=== PATIENT | female | born 1930 | race Caucasian/White ===

== ENCOUNTER 2019-04-30 14:36 | Inpatient (IN) | payer OTHER ==
[~2019-04-30] VITALS: Ht 152.4 cm; Wt 63.2 kg
[~2019-04-30 14:36] MED LIST: LEVO100T8 PO; LISI10TA6 PO
[2019-04-30 15:39] LABS: Alanine Aminotransferase 112 U/L (13-56); Albumin 3.8 g/dL (3.4-5.0); Anion Gap 10 (5-15); Blood Urea Nitrogen 21 mg/dL (7-18); Calcium 8.4 mg/dL (8.5-10.1); Carbon Dioxide 21 mmol/L (21-32); Chloride 106 mmol/L (98-107); Glucose 121 mg/dL (74-106); Sodium 137 mmol/L (136-145)
[2019-04-30 15:40] LABS: Basophils # (auto) 0.1 uL; Basophils % (auto) 0.8 % (0.0-2.0); Eosinophils # (auto) 0.1 uL; Hematocrit 41.5 % (36.0-46.0); Hemoglobin 13.7 g/dL (12.2-16.2); Lymphocytes # (auto) 1.4 uL; Lymphocytes % (auto) 20.6 % (10.0-50.0); Mean Corpuscular Hemoglobin 28.6 pg (28.0-32.0); Mean Corpuscular Hgb Conc. 33.1 g/dL (32.0-36.0); Mean Corpuscular Volume 86.3 fL (80.0-100.0); Monocytes # (auto) 0.4 uL; Monocytes % (auto) 6.3 % (0.0-12.0); Neutrophils # (auto) 4.8 uL; Neutrophils % (auto) 70.3 % (37.0-80.0); Nucleated Red Blood Cells % 0.2 %; Platelet Count (auto) 185 10^3/uL (140-450); Red Blood Cells 4.81 10^6/uL (4.0-5.20); Red Cell Distribution Width 14.1 % (11.8-14.3); White Blood Cell 6.9 10^3/uL (4.4-10.8)
[2019-04-30 15:44] LABS: Alkaline Phosphatase 107 U/L (45-117); Aspartate Aminotransferase 152 U/L (15-37); BUN/Creatinine Ratio 21.2; Bilirubin, Total 0.9 mg/dL (0.2-1.0); GFR African American 68 mL/min; GFR Non-African American 56 mL/min; Total Protein 7.3 g/dL (6.4-8.2)
[2019-04-30] MEDS ORDERED: cefTRIAXone 1GM/50ML D5W 50 ML IV ONE (16:45)
[2019-04-30 17:48] LABS: Urine Bacteria FEW /hpf (None Seen); Urine Blood Negative /uL (Negative); Urine Specific Gravity 1.007 (1.001-1.035); Urine WBC 2 /hpf (0 - 5)
[2019-04-30 18:05] LABS: INR 1.01 (0.9-1.15); Partial Thromboplastin Time 26.9 sec (23.64-32.05)
[2019-04-30] MEDS ORDERED: NITROGLYCERIN 0.4 MG SL TAB SL PRN (20:45)
[2019-04-30] MEDS ORDERED: AZITHROMYCIN 500MG/ 250ML 250 ML IV ONE (20:45)
[2019-04-30] MEDS ORDERED: FUROSEMIDE 20 MG/2 ML VIAL IV ONE (20:45)
[2019-04-30] MEDS ORDERED: MORPHINE SULF INJ 2 MG/ML SYRINGE 1ML IV PRN (20:45)
[2019-04-30] MEDS ORDERED: ONDANSETRON HCL 4 MG/2 ML VIAL IV PRN (20:45)
[2019-04-30] MEDS ORDERED: ACETAMINOPHEN 325 MG TAB PO PRN (20:45)
[2019-04-30] MEDS ORDERED: FAMOTIDINE 20 MG TAB PO SCH (22:00)
[2019-04-30 23:00] VITALS: BP 149/89
[2019-04-30] MEDS: TEMAZEPAM 15 MG CAP PO PRN (23:26)
--- NOTE | 2019-05-01 | NUR ---
Telemetry admit from [facility] admitted to Telemetry unit after SBAR received. Patient oriented to STEPHAN PRASAD RN primary RN, unit, room, bed, and unit policies regarding patient care and visiting hours. Patient now on continuous telemetry monitoring, tele box #[id number] and telemetry reading on arrival to unit is NSR. Patient placed on bedside oxygen 2L/NC, weighed by bed scale and encouraged to call if they need something. All questions and concerns addressed, patient verbalized understanding. Note:
[2019-05-01] MEDS ORDERED: ZOLP5TAB5 PO (00:33)
[2019-05-01] MEDS ORDERED: HYDR50TA69 PO (00:33)
[2019-05-01 05:00] VITALS: BP 153/74
[2019-05-01] MEDS: LEVOTHYROXINE SODIUM 100 MCG TAB PO SCH (06:20)
[2019-05-01 07:25] LABS: Basophils # (auto) 0.1 uL; Basophils % (auto) 0.9 % (0.0-2.0); Eosinophils # (auto) 0.2 uL; Eosinophils % (auto) 2.6 % (0.0-7.0); Hematocrit 42.2 % (36.0-46.0); Hemoglobin 13.9 g/dL (12.2-16.2); Lymphocytes # (auto) 1.8 uL; Lymphocytes % (auto) 29.5 % (10.0-50.0); Mean Corpuscular Hemoglobin 28.4 pg (28.0-32.0); Monocytes # (auto) 0.4 uL; Monocytes % (auto) 7.2 % (0.0-12.0); Neutrophils # (auto) 3.7 uL; Neutrophils % (auto) 59.8 % (37.0-80.0); Nucleated Red Blood Cells % 0.1 %; Platelet Count (auto) 190 10^3/uL (140-450); Red Cell Distribution Width 14.2 % (11.8-14.3); White Blood Cell 6.1 10^3/uL (4.4-10.8)
--- NOTE | 2019-05-01 07:30 | NUR ---
OPENING NOTE The patient is received alert and oriented times four with no SOB or s/s of distress at this time. The patient is resting in bed in the lowest position with all light within reach, will continue to monitor and POC.
[2019-05-01 07:43] LABS: BUN/Creatinine Ratio 22.1; Calcium 8.4 mg/dL (8.5-10.1)
[2019-05-01 08:00] VITALS: BP 141/80
[2019-05-01] MEDS ORDERED: cefTRIAXone 1GM/50ML D5W 50 ML IV SCH (09:00)
--- NOTE | 2019-05-01 09:30 | NUR ---
ROCEPHIN STOPPED The patient's IV Rocephin 1 gm is stopped. The patient states that her IV site is burning and the patient has redness to the IV site. The patient's IV is D/C'd with catheter intact. The patient has a new IV started to the left upper arm, 20 gauge after one attempt. Will continue to monitor and POC.
[2019-05-01] MEDS ORDERED: LISINOPRIL 10 MG TAB PO SCH (10:00)
[2019-05-01] MEDS ORDERED: FUROSEMIDE 40 MG TAB PO SCH (10:00)
[2019-05-01] MEDS ORDERED: AZITHROMYCIN 500MG/ 250ML 250 ML IV SCH (10:00)
[2019-05-01 12:00] VITALS: BP 143/76
[2019-05-01] MEDS: ENOXAPARIN SOD 40 MG/0.4 ML SYRINGE SC SCH (12:16)
--- NOTE | 2019-05-01 13:15 | NUR ---
PHYSICIAN BEDSIDE Dr. Spivey is bedside and updates the patient on the POC.
[2019-05-01 17:00] VITALS: BP 131/74
--- NOTE | 2019-05-01 17:57 | NUR ---
Discharge planning per consult, patient has orders to dc with [facility]. Referral faxed to [facility]-Racquel Donnelly, and she advised that she will forward the referral to the appropriate department for processing but that it will typically go to [facility]. Placed a follow up call, Racquel Donnelly was gone, but per Nida (she answered the ext for Racquel Donnelly), the notes indicate that [facility] will see the patient on Saturday. Addendum: 05/01/19 at 1802 by TIKA ABDULLAHI Amended: Links added.
[2019-05-01] MEDS: FUROSEMIDE 20 MG/2 ML VIAL IV SCH (18:21)
--- NOTE | 2019-05-01 20:04 | NUR ---
Opening Shift Note Assumed care of patient, awake and alert. No S/S of distress/SOB or pain, on 2L O2 via NC. Instructed on POC and to call for assist PRN, will continue to monitor for changes Q1hr and PRN.
[2019-05-01] MEDS: TEMAZEPAM 15 MG CAP PO PRN (21:00)
[2019-05-01] MEDS: POTASSIUM EFFERVESENT TAB 25 MEQ PO SCH (21:00)
[2019-05-01 21:56] VITALS: BP 125/46
[2019-05-01] MEDS ORDERED: FAMOTIDINE 20 MG TAB PO SCH (22:00)
[2019-05-02 04:50] VITALS: BP 115/61
[2019-05-02] MEDS: LEVOTHYROXINE SODIUM 100 MCG TAB PO SCH (06:21)
[2019-05-02] MEDS: FUROSEMIDE 20 MG/2 ML VIAL IV SCH (06:22)
[2019-05-02 07:52] LABS: BUN/Creatinine Ratio 23.3; Calcium 8.3 mg/dL (8.5-10.1); Potassium 3.9 mmol/L (3.5-5.1)
--- NOTE | 2019-05-02 08:00 | NUR ---
Opening Shift Note Assumed care of patient, awake and alert. No S/S of distress/SOB or pain. Instructed on POC and to call for assist PRN, will continue to monitor for changes Q1hr and PRN.
[2019-05-02 09:00] VITALS: BP 145/80
[2019-05-02] MEDS: POTASSIUM EFFERVESENT TAB 25 MEQ PO SCH (09:29)
[2019-05-02] MEDS: ENOXAPARIN SOD 40 MG/0.4 ML SYRINGE SC SCH (09:30)
[2019-05-02] MEDS ORDERED: FURO1TAB31 PO (10:46)
--- NOTE | 2019-05-02 12:17 | NUR ---
DISCHARGE WENT OVER ALL DISCHARGE PAPERWORK WITH PATIENT. ANSWERED QUESTIONS. REMOVED ID BAND. REMOVED TELEMETRY AND SENT TO ICU; CALLED ICU TO LET THEM KNOW. REMOVED IV. GAVE PRESCRIPTION TO PATIENT. PATIENT DROVE HERSELF TO THE HOSPITAL, BUT HER FAMILY IS CONCERNED ABOUT HER ABILITY TO DRIVE HERSELF HOME AT THIS TIME. THEY ARE COMING TO PICK HER UP.
[2019-05-02 13:00] VITALS: BP 122/74
== END 2019-05-02 14:49 | disposition home health service (06) | DRG 291 ==
LOC: ER 14:51 → TELE 14:52 → TELE-WESTW 22:44
PROVIDERS: ADMIT Nurse Practitioner; ATTEND Hospitalist
DX: I11.0 Hypertensive heart disease with heart failure (principal); J96.01 Acute respiratory failure with hypoxia; J18.1 Lobar pneumonia, unspecified organism; N39.0 Urinary tract infection, site not specified; I50.43 Acute on chronic combined systolic (congestive) and diastolic (congestive) heart failure; E03.9 Hypothyroidism, unspecified; E11.9 Type 2 diabetes mellitus without complications; E78.5 Hyperlipidemia, unspecified; F41.9 Anxiety disorder, unspecified; I70.0 Atherosclerosis of aorta; Z82.49 Family history of ischemic heart disease and other diseases of the circulatory system; Z88.1 Allergy status to other antibiotic agents; Z88.0 Allergy status to penicillin; Z88.2 Allergy status to sulfonamides; Z79.899 Other long term (current) drug therapy
CPT/HCPCS: 36415; 71046; 80048; 80053; 81001; 83605; 83735; 83880; 84443; 84484; 85025; 85610; 85730; 87040; 93306; 94761; 96365; 96366; 96367; G0378; J0696

== ENCOUNTER 2019-08-09 03:01 | Emergency (ER) | payer OTHER ==
[~2019-08-09] VITALS: Ht 142.2 cm; Wt 60.3 kg
[~2019-08-09 03:01] MED LIST changes: +FURO1TAB31 PO; +HYDR50TA69 PO; +ZOLP5TAB5 PO
[2019-08-09 07:21] VITALS: BP 106/55
== END 2019-08-09 07:44 | disposition home or self-care (01) ==
LOC: ER 03:01
DX: S01.01XA Laceration without foreign body of scalp, initial encounter (principal); W01.0XXA Fall on same level from slipping, tripping and stumbling without subsequent striking against object, initial encounter; Y93.89 Activity, other specified; Y92.092 Bedroom in other non-institutional residence as the place of occurrence of the external cause; Y99.8 Other external cause status; E78.5 Hyperlipidemia, unspecified; I10 Essential (primary) hypertension; Z88.0 Allergy status to penicillin; Z88.2 Allergy status to sulfonamides; Z88.1 Allergy status to other antibiotic agents; Z79.899 Other long term (current) drug therapy
CPT/HCPCS: 12002; 70450; 72125

== ENCOUNTER 2019-09-08 12:45 | Emergency (ER) | payer MEDICARE, OTHER ==
[~2019-09-08] VITALS: Ht 149.9 cm; Wt 59.0 kg
[2019-09-08 16:30] VITALS: BP 126/64
[2019-09-08 16:57] LABS: Urine Bacteria NONE SEEN /hpf (None Seen); Urine Blood 3+ /uL (Negative); Urine Hyaline Cast MANY /lpf (0 - 2); Urine Mucus FEW (None Seen); Urine Specific Gravity 1.019 (1.001-1.035); Urine WBC 4801 /hpf (0 - 5)
[2019-09-08] MEDS ORDERED: PHENAZOPYRIDINE HCL 100 MG TAB PO ONE (18:15)
== END 2019-09-08 18:15 | disposition home or self-care (01) ==
LOC: ER 12:53
DX: N39.0 Urinary tract infection, site not specified (principal); E78.5 Hyperlipidemia, unspecified; I10 Essential (primary) hypertension; E07.9 Disorder of thyroid, unspecified; Z88.1 Allergy status to other antibiotic agents; Z88.0 Allergy status to penicillin; Z88.2 Allergy status to sulfonamides
CPT/HCPCS: 81001

== ENCOUNTER 2019-09-11 11:36 | Emergency (ER) | payer BC, MEDICARE ==
[~2019-09-11] VITALS: Ht 149.9 cm; Wt 61.2 kg
[2019-09-11 11:39] VITALS: BP 133/59
[2019-09-11 12:12] LABS: Urine Bacteria NONE SEEN /hpf (None Seen); Urine Blood 2+ /uL (Negative); Urine Specific Gravity 1.018 (1.001-1.035); Urine WBC 1974 /hpf (0 - 5)
[2019-09-11] MEDS ORDERED: cefTRIAXone SOD 1,000 MG VL IM ONE (13:30)
== END 2019-09-11 14:00 | disposition home or self-care (01) ==
LOC: ER 11:36
DX: N39.0 Urinary tract infection, site not specified (principal); I10 Essential (primary) hypertension; E78.5 Hyperlipidemia, unspecified; Z88.0 Allergy status to penicillin; Z88.1 Allergy status to other antibiotic agents; Z88.2 Allergy status to sulfonamides
CPT/HCPCS: 81001; 96372; 99283; J0696

== ENCOUNTER 2019-09-16 10:55 | Emergency (ER) | payer BC, OTHER ==
[~2019-09-16] VITALS: Ht 147.3 cm; Wt 59.9 kg
[2019-09-16 11:50] LABS: Urine Bacteria NONE SEEN /hpf (None Seen); Urine Blood 1+ /uL (Negative); Urine Specific Gravity 1.005 (1.001-1.035); Urine WBC 84 /hpf (0 - 5); Urine WBC Clumps PRESENT /hpf (None Seen)
[2019-09-16 13:27] VITALS: BP 139/76
[2019-09-16] MEDS ORDERED: cefTRIAXone SOD 1,000 MG VL IM ONE (13:30)
[2019-09-16] MEDS ORDERED: PHENAZOPYRIDINE HCL 100 MG TAB PO ONE (13:30)
== END 2019-09-16 13:57 | disposition home or self-care (01) ==
LOC: ER 10:55
DX: N30.00 Acute cystitis without hematuria (principal); E78.5 Hyperlipidemia, unspecified; I10 Essential (primary) hypertension; E07.9 Disorder of thyroid, unspecified; Z88.0 Allergy status to penicillin; Z88.2 Allergy status to sulfonamides; Z88.1 Allergy status to other antibiotic agents
CPT/HCPCS: 81001; 87086; 87088; 87186; 96372; 99283; J0696